=== PATIENT | female | born 1980 | race American Indian/Alaskan Native ===

== ENCOUNTER 2016-11-26 07:49 | Day surgery (SDC) | payer BC ==
--- NOTE | 2016-11-26 10:15 | Short Stay Summary ---
Short Stay Documentation Date of service: 11/26/16 - History Principal diagnosis: right thyroid mass H&P: obtained from office - Allergies and Medications Current Medications: Allergies No Known Allergies Allergy (Verified 11/26/16 08:10) Home Medications Medication Instructions Recorded Confirmed Last Taken Type Ibuprofen [Motrin] 800 mg PO Q8H PRN #14 tablet 06/18/14 11/26/16 11/01/16 Rx medroxyPROGESTERone ACETATE 150 mg IM [id number] 11/26/16 11/26/16 3 Months Ago History [Depo-Provera (Contraception)] - Physical exam General appearance: no acute distress HEENT: Other (slightly prominent thyroid) - Brief post op/procedure progress note Date of procedure: 11/26/16 Pre-op diagnosis: thyroid mass, right Post-op diagnosis: same Procedure: US thyroid biopsy Anesthesia: local Findings: see report Surgeon: BUCKY LYON Estimated blood loss: minimal Pathology: list (FNA, rotex biopsy) Specimen disposition: to lab Condition: stable - Disposition Condition at discharge: Good Disposition: DISCHARGED TO HOME OR SELFCARE
[2016-11-26 10:21] VITALS: BP 112/79
--- NOTE | 2016-11-26 11:05 | Ultrasound Report ---
ULTRASOUND BIOPSY THYROID: HISTORY: Right thyroid mass. DESCRIPTION OF PROCEDURE: Informed consent was obtained. Sterile technique was utilized. 1% lidocaine for skin anesthesia. Initial scan of the thyroid gland demonstrates a large complex mass in the mid right thyroid lobe measuring 5.7 x 3.0 x 3.8 cm. There is approximately 30% internal cystic change in this lesion. There is increased flow on color Doppler. No obvious calcifications. Ultrasound-guided fine needle aspiration of the fluid component of this lesion yielded approximately 8 cc of brown-colored fluid. Ultrasound-guided FNA and ultrasound-guided Rotex biopsy performed on the lesion. The samples were deemed adequate by the pathologist on site. The patient experienced minor swelling at the biopsy site at the end of the procedure consistent with a small hematoma formation. IMPRESSION: Successful ultrasound-guided biopsy of the complex right thyroid lobe lesion.
== END 2016-11-26 10:41 | disposition home or self-care (01) ==
LOC: OPU 07:49
PROVIDERS: ATTEND Specialist
DX: E06.9 Thyroiditis, unspecified (principal)
CPT/HCPCS: 60100; 76942; 88112; 88172; 88173; 88305